=== PATIENT | female | born 1950 | race Caucasian/White ===

== ENCOUNTER → 2024-10-03 10:37 | Outpatient (REF) | payer MEDICARE, OTHER, SELFPAY ==
[2024-10-03 11:50] LABS: % Basophils 1.2 % (0-2); % Eosinophils 3.7 % (0-6); % Immature Granulocytes 0.2 % (0-0.5); % Lymphocytes 22.1 % (20.5-51.1); % Monocytes 10.8 % (1.7-9.3); Absolute Basophils 0.1 10^3/uL (0-0.2); Absolute Eosinophils 0.2 10^3/uL (0-0.7); Absolute Lymphocytes 0.9 10^3/uL (1.2-3.4); Absolute Monocytes 0.4 10^3/uL (0.1-0.6); Absolute Neutrophils 2.5 10^3/uL (1.4-6.5); Hematocrit 35.3 % (37.0-47.0); Hemoglobin 11.6 g/dL (12.0-16.0); Mean Corp Hgb Conc. 32.9 g/dL (33.0-37.0); Mean Corpuscular Hgb 35.4 pg (27.0-31.0); Mean Corpuscular Volume 107.6 fL (81.0-99.0); Nucleated Red Blood Cells % 0 %; Platelet Count 304 10^3/uL (130-400); Red Blood Cell Count 3.28 10^6/uL (4.20-5.40); White Blood Cell Count 4.1 10^3/uL (4.8-10.8)
[2024-10-03 12:46] LABS: ALT (SGPT) 15 U/L (0-35); AST (SGOT) 23 U/L (14-36); Albumin 4.7 g/dl (3.5-5.0); Alkaline Phosphatase 76 U/L (38-126); Blood Urea Nitrogen 38 mg/dl (7-17); Calcium 9.9 mg/dl (8.4-10.2); Carbon Dioxide 22 mmol/L (22-30); Chloride 101 mmol/L (98-107); Glucose 101 mg/dl (70-99); Iron 152 ug/dl (37-170); Potassium 4.8 mmol/L (3.5-5.1); Sodium 139 mmol/L (135-145); Total Bilirubin 0.4 mg/dl (0.2-1.3); Total Cholesterol 228 mg/dl (50-199); Total Protein 7.4 g/dl (6.3-8.2); Triglyceride 105 mg/dl (10-149); Very Low Density Lipoprotein 21 mg/dl (0-30); eGFR 39.97
[2024-10-03 13:05] LABS: HDL Cholesterol 111 mg/dl; LDL Cholesterol, Calculated 96 mg/dl
== END ==
LOC: WDC 10:37
PROVIDERS: ATTENDING PHYSICIAN Internal Medicine
DX: Z12.31 Encounter for screening mammogram for malignant neoplasm of breast (principal); M81.8 Other osteoporosis without current pathological fracture; I10 Essential (primary) hypertension; E78.5 Hyperlipidemia, unspecified; D51.9 Vitamin B12 deficiency anemia, unspecified
CPT/HCPCS: 36415; 80053; 80061; 82728; 83540; 85025

== ENCOUNTER → 2025-11-04 08:14 | Outpatient (REF) | payer MEDICARE, OTHER, SELFPAY ==
[2025-11-04 10:39] LABS: Iron 187 ug/dl (37-170)
[2025-11-04 11:09] LABS: Ferritin 199.0 ng/ml (11.1-264.0)
[2025-11-04 11:23] LABS: Vitamin B12 411 pg/ml (239-931)
== END ==
LOC: REG 08:14
PROVIDERS: ATTENDING PHYSICIAN Internal Medicine
DX: R19.5 Other fecal abnormalities (principal); D64.9 Anemia, unspecified; D59.9 Acquired hemolytic anemia, unspecified
CPT/HCPCS: 36415; 82607; 82728; 82784; 83516; 83540; 86231